=== PATIENT | female | born 1980 | race Caucasian/White ===

== ENCOUNTER 2017-05-02 20:18 | Emergency (ER) | payer BC, OTHER ==
[~2017-05-02] VITALS: Ht 157.5 cm; Wt 64.5 kg
[2017-05-02 20:19] VITALS: BP 117/75
== END 2017-05-02 22:32 | disposition home or self-care (01) ==
LOC: ED 22:26
DX: S93.402A Sprain of unspecified ligament of left ankle, initial encounter (principal); X50.1XXA Overexertion from prolonged static or awkward postures, initial encounter; Y93.01 Activity, walking, marching and hiking; Y92.89 Other specified places as the place of occurrence of the external cause; Y99.8 Other external cause status
CPT/HCPCS: 99284